=== PATIENT | male | born 1935 | race Caucasian/White ===

== ENCOUNTER 2023-01-06 11:14 | Outpatient (CLI) | payer MEDICARE, OTHER, SELFPAY | END 2023-01-06 11:15 | disposition home or self-care (01) | PROVIDERS: PCP Family Medicine; Visit Provider Family Medicine | DX: E78.5 Hyperlipidemia, unspecified (principal); I50.9 Heart failure, unspecified; J44.9 Chronic obstructive pulmonary disease, unspecified; N40.0 Benign prostatic hyperplasia without lower urinary tract symptoms | CPT/HCPCS: 80048; 80061; 83880; 84460; 85025 ==